=== PATIENT | male | born 1990 | race Caucasian/White ===

== ENCOUNTER 2016-12-27 21:00 | Emergency (ER) | payer OTHER ==
[~2016-12-27] VITALS: Ht 167.6 cm; Wt 68.2 kg
[2016-12-27 21:27] LABS: HEMATOCRIT 43.6 % (38.0-50.0); MCH 29.6 PG (29.0-34.0); MCHC 35.6 G/DL (30.0-36.0); MCV 83.2 FL (86-99); MEAN PLAT.VOLUME 8.2 uM^3 (9.0-12.4); PLATELET COUNT 223 K/uL (156-360); RBC DIS.WIDTH-SD 36.3 % (39-53); RED BLOOD COUNT 5.24 M/uL (4.00-5.50); WHITE BLOOD COUNT 6.3 K/uL (4.1-10.2)
[2016-12-27 21:40] LABS: CHLORIDE 102 mEq/L (99-109); POTASSIUM 3.6 mEq/L (3.7-5.4); SODIUM 140 mEq/L (136-147)
[2016-12-27 21:43] LABS: GLUCOSE 149 mg/dL (70-99)
[2016-12-27 21:44] LABS: ANION GAP 13 MEQ/L (2-14)
[2016-12-27 21:45] LABS: TOTAL BILIRUBIN 0.4 mg/dL (0.0-1.0)
[2016-12-27 21:46] LABS: SERUM ETHYL ALCOHOL < 10 mg/dL
[2016-12-27 21:47] LABS: ALKALINE PHOSPHATASE 73 IU/L (3-129)
[2016-12-27 21:48] LABS: UREA NITROGEN (BUN) 13 mg/dL (9-23)
[2016-12-27 21:50] LABS: SALICYLATE < 5.0 MG/DL (15-30)
[2016-12-27 21:58] LABS: GFR ESTIMATE (CALCULATED) > 59 mL/min/
[2016-12-27] MEDS ORDERED: NARCAN4 MG NS (22:37)
[2016-12-27 23:03] VITALS: BP 138/82
== END 2016-12-27 23:04 | disposition home or self-care (01) ==
LOC: EME 21:00
PROVIDERS: Emergency Medicine
DX: T65.91XA Toxic effect of unspecified substance, accidental (unintentional), initial encounter (principal); R51 Headache; F19.10 Other psychoactive substance abuse, uncomplicated; R00.0 Tachycardia, unspecified; F17.200 Nicotine dependence, unspecified, uncomplicated; Z71.6 Tobacco abuse counseling
CPT/HCPCS: 80053; 81003; 85027; 93005; 99281; 99284; G0480; J7030